=== PATIENT | male | born 1955 | race Caucasian/White ===

== ENCOUNTER 2017-10-17 22:23 | Inpatient (IN) | payer OTHER ==
[2017-10-17] MEDS: EZETIMIBE 10 MG TAB PO (23:00)
[2017-10-17] MEDS ORDERED: NITROGLYCERIN (SL) 0.4 MG TAB SL (23:00)
[2017-10-17] MEDS: ATORVASTATIN 20 MG TAB PO (23:00)
[2017-10-17] MEDS ORDERED: ONDANSETRON 4 MG INJ IV (23:00)
[2017-10-17] MEDS ORDERED: ACETAMINOPHEN 325 MG TAB PO (23:00)
[2017-10-17] MEDS ORDERED: NACL 0.9% 3 ML SYG IV (23:00)
[2017-10-17] MEDS ORDERED: ALBUTEROL/IPRATROPIUM (NEB) 3 ML AMP HHN (23:00)
[2017-10-17] MEDS: ZOLPIDEM 5 MG TAB PO (23:56)
[2017-10-17] MEDS: morphine 2 MG INJ IV (23:57)
[2017-10-18 08:19] LABS: ADD MAN DIFF? NO
[2017-10-18 08:24] LABS: BASOPHIL # 0.1 10^3/ul (0.0-0.1); BASOPHILS % 0.9 % (0.0-2.0); EOSINOPHILS # 0.3 10^3/ul (0.0-0.5); EOSINOPHILS % 4.6 % (0.0-7.0); HEMATOCRIT 37.8 % (42.0-52.0); HEMOGLOBIN 13.3 g/dl (14.0-18.0); LYMPHOCYTES # 1.9 10^3/ul (0.8-2.9); LYMPHOCYTES % 33.3 % (15.0-51.0); MEAN CORPUSCULAR HGB CONC 35.2 g/dl (32.0-37.0); MEAN CORPUSCULAR VOLUME 91.1 fl (82.0-101.0); MEAN PLATELET VOLUME 10.9 fl (7.4-10.4); MONOCYTE # 0.7 10^3/ul (0.3-0.9); MONOCYTES % 12.4 % (0.0-11.0); NEUTROPHIL # 2.7 10^3/ul (1.6-7.5); NEUTROPHILS % 48.6 % (39.0-77.0); PLATELET COUNT 150 10^3/UL (140-415); RED BLOOD COUNT 4.15 10^6/ul (4.70-6.10); RED CELL DISTRIBUTION WIDTH 13.3 % (11.5-14.5)
[2017-10-18 08:24] LABS: WHITE BLOOD COUNT 5.6 10^3/ul (4.8-10.8)
[2017-10-18 08:43] LABS: ALANINE AMINOTRANSFERASE 35 IU/L (13-69); ALBUMIN 3.7 g/dl (3.3-4.9); ALBUMIN/GLOBULIN RATIO 1.12; ALKALINE PHOSPHATASE 57 IU/L (42-121); ANION GAP 14 (8-16); ASPARTATE AMINO TRANSFERASE 25 IU/L (15-46); BLOOD UREA NITROGEN 18 mg/dl (7-20); CALCIUM 8.8 mg/dl (8.4-10.2); CARBON DIOXIDE 20 mmol/L (21-31); CHLORIDE 113 mmol/L (97-110); CHOLESTEROL 98 mg/dl (100-200); CREATININE 1.07 mg/dl (0.61-1.24); GLUCOSE 120 mg/dl (70-220); HDL CHOLESTEROL 47 mg/dl (30-78); LDL CHOLESTEROL,CALCULATED 29 mg/dl; POTASSIUM 3.6 mmol/L (3.5-5.1); SODIUM 143 mmol/L (135-144); TRIGLYCERIDES 110 mg/dl (0-149)
[2017-10-18] MEDS: NIACIN 500 MG TAB PO ×2 (09:00→21:08)
[2017-10-18] MEDS: RANITIDINE 150 MG TAB PO ×2 (09:00→21:12)
[2017-10-18] MEDS: AMLODIPINE 5 MG TAB PO ×2 (09:00→21:13)
[2017-10-18] MEDS: ISOSORBIDE MONONITRATE(SR)30 MG TAB PO (09:00)
[2017-10-18] MEDS: LORATADINE 10 MG TAB PO (09:00)
[2017-10-18] MEDS: ASPIRIN 81 MG TAB PO (09:00)
[2017-10-18 09:01] LABS: HEMOGLOBIN A1C 5.2 % (0-5.9)
[2017-10-18] MEDS: FISH OIL 1,000 MG CAP PO ×2 (11:40→21:08)
[2017-10-18] MEDS: TOPIRAMATE 100 MG TAB PO ×2 (11:40→21:00)
[2017-10-18] MEDS: BENAZEPRIL 20 MG TAB PO ×2 (11:40→21:12)
[2017-10-18] MEDS: RANOLAZINE (SR) 500 MG TAB PO ×2 (11:40→21:10)
[2017-10-18] MEDS: ATORVASTATIN 20 MG TAB PO (21:00)
[2017-10-18] MEDS: EZETIMIBE 10 MG TAB PO (21:08)
[2017-10-18] MEDS: CLOPIDOGREL 75 MG TAB PO (21:09)
[2017-10-18] MEDS: MONTELUKAST 10 MG TAB PO (21:10)
[2017-10-18] MEDS: LORAZEPAM 2 MG INJ IV (21:50)
[2017-10-18] MEDS: ZOLPIDEM 5 MG TAB PO (23:00)
[2017-10-19 08:07] LABS: ADD MAN DIFF? NO
[2017-10-19 08:09] LABS: BASOPHILS % 0.5 % (0.0-2.0); EOSINOPHILS # 0.3 10^3/ul (0.0-0.5); EOSINOPHILS % 4.2 % (0.0-7.0); HEMATOCRIT 38.7 % (42.0-52.0); HEMOGLOBIN 13.4 g/dl (14.0-18.0); LYMPHOCYTES # 2.2 10^3/ul (0.8-2.9); LYMPHOCYTES % 35.9 % (15.0-51.0); MEAN CORPUSCULAR HEMOGLOBIN 32.2 pg (29.0-33.0); MEAN CORPUSCULAR HGB CONC 34.6 g/dl (32.0-37.0); MEAN PLATELET VOLUME 11.3 fl (7.4-10.4); MONOCYTE # 0.7 10^3/ul (0.3-0.9); MONOCYTES % 11.5 % (0.0-11.0); NEUTROPHIL # 2.9 10^3/ul (1.6-7.5); NEUTROPHILS % 47.6 % (39.0-77.0); PLATELET COUNT 149 10^3/UL (140-415); RED BLOOD COUNT 4.16 10^6/ul (4.70-6.10); RED CELL DISTRIBUTION WIDTH 13.1 % (11.5-14.5)
[2017-10-19] MEDS: NIACIN 500 MG TAB PO (08:31)
[2017-10-19] MEDS: LORATADINE 10 MG TAB PO (08:31)
[2017-10-19] MEDS: BENAZEPRIL 20 MG TAB PO (08:31)
[2017-10-19] MEDS: FISH OIL 1,000 MG CAP PO (08:31)
[2017-10-19] MEDS: ASPIRIN 81 MG TAB PO (08:31)
[2017-10-19] MEDS: RANOLAZINE (SR) 500 MG TAB PO (08:31)
[2017-10-19] MEDS: TOPIRAMATE 100 MG TAB PO (08:32)
[2017-10-19] MEDS: RANITIDINE 150 MG TAB PO (08:32)
[2017-10-19] MEDS: ISOSORBIDE MONONITRATE(SR)30 MG TAB PO (08:32)
[2017-10-19 08:38] LABS: ALANINE AMINOTRANSFERASE 37 IU/L (13-69); ALBUMIN 3.7 g/dl (3.3-4.9); ALBUMIN/GLOBULIN RATIO 1.15; ALKALINE PHOSPHATASE 56 IU/L (42-121); ANION GAP 13 (8-16); ASPARTATE AMINO TRANSFERASE 26 IU/L (15-46); BLOOD UREA NITROGEN 15 mg/dl (7-20); CALCIUM 8.7 mg/dl (8.4-10.2); CARBON DIOXIDE 21 mmol/L (21-31); CHLORIDE 113 mmol/L (97-110); CHOL/HDL RATIO 2.4 RATIO; CHOLESTEROL 117 mg/dl (100-200); CREATININE 1.07 mg/dl (0.61-1.24); GLUCOSE 109 mg/dl (70-220); HDL CHOLESTEROL 47 mg/dl (30-78); LDL CHOLESTEROL,CALCULATED 43 mg/dl; POTASSIUM 3.8 mmol/L (3.5-5.1); SODIUM 143 mmol/L (135-144); TOTAL PROTEIN 6.9 g/dl (6.1-8.1); TRIGLYCERIDES 134 mg/dl (0-149)
[2017-10-19 08:50] LABS: FREE THYROXINE INDEX (Calc) 2.02 ug/ml (0.65-3.89); T3 UPTAKE 37.4 % (23.5-40.5); T4 (THYROXINE) 5.4 ug/dl (5.5-11.0)
[2017-10-19 09:15] LABS: HEMOGLOBIN A1C 5.3 % (0-5.9)
== END 2017-10-19 16:14 | disposition home or self-care (01) | DRG 69 ==
LOC: MS4 22:23
DX: G45.9 Transient cerebral ischemic attack, unspecified (principal); G81.91 Hemiplegia, unspecified affecting right dominant side; I10 Essential (primary) hypertension; I25.10 Atherosclerotic heart disease of native coronary artery without angina pectoris; I35.1 Nonrheumatic aortic (valve) insufficiency; I45.4 Nonspecific intraventricular block; E78.5 Hyperlipidemia, unspecified; I25.2 Old myocardial infarction; Z95.5 Presence of coronary angioplasty implant and graft; Z86.73 Personal history of transient ischemic attack (TIA), and cerebral infarction without residual deficits; Z87.891 Personal history of nicotine dependence; Z79.02 Long term (current) use of antithrombotics/antiplatelets; Z79.82 Long term (current) use of aspirin
CPT/HCPCS: 70551; 80053; 80061; 83036; 83735; 84436; 84443; 84479; 85025; 87081; 93005; 93306; 93880; 97162